=== PATIENT | female | born 1980 | race Caucasian/White ===

== ENCOUNTER 2017-11-17 18:14 | Inpatient (IN) | payer BC, OTHER ==
[~2017-11-17] VITALS: Ht 165.1 cm; Wt 80.8 kg
--- NOTE | ~2017-11-17 | EEG ---
[facility] [place] [address] ELECTROENCEPHALOGRAM Name: ANALISA NEWELL Room #: 212-P [facility] IN M.R.#: [id number] Admission: 11/17/17 Attend Phys: Fredrick Hurtado DO Discharge: 11/21/17 Date of : 80 Report #: [id number] THIS REPORT FOR: //name// CC: Fredrick Hurtado Physician staff Evelin Lerma DATE OF SERVICE: 11/18/2017 This patient is being evaluated for episodes of syncope. EEG was done by placing the electrode by standard 10-20 system of electrode placement. Background activity in this patient's EEG is about 11 Hz and 40 microvolts. It is a symmetrical activity. It is intermixed with fast beta range activity, which is probably the effect of medication. The patient became drowsy that is associated with bilateral slowing and vertex sharp waves. Photic stimulation was unremarkable. Throughout the record, no active epileptiform activity was noticed. IMPRESSION: This patient's EEG is within normal limits. No active epileptiform activity was noticed during this record. <ELECTRONICALLY SIGNED> By: Beltran Guillen MD 11/22/17 0819 1524 1539 Beltran Guillen MD /nt
--- NOTE | ~2017-11-17 | HC ---
[facility] [place] [address] CONSULTATION Name: ANALISA NEWELL Room #: 212-P [facility] IN .R.#: [id number] Admission: 11/17/17 Attend Phys: Fredrick Hurtado DO Discharge: 11/21/17 Date of : 80 Report #: [id number] THIS REPORT FOR: //name// CC: Fredrick Hurtado Physician staff Evelin Lerma DATE OF SERVICE: 11/18/2017 HISTORY OF PRESENT ILLNESS: This is a 37-year-old female patient who was evaluated by me for any neurological etiology for the patient's dizziness. The patient gives a history that she started having migraine headache when she was about 16. She used to get about 2-3 migraines headache per month. They were predominantly on the left side, but occasionally switched side. She did not know what brought it on and what makes them better. She was started on Topamax, but did not continue with Topamax because initially it was effective, but subsequently it became ineffective. She continued to have those episodes and now she is also having dizziness. She said most of the time, headache and dizziness come together. She has not had any recent MRI done. She has seen neurologist in the past, but not recently. Her family doctor has thought about sending this patient for Botox shot. REVIEW OF SYSTEMS: Pretty extensive in this patient. She has a history of depression and anxiety. She takes multiple psychotropic medications. She had multiple surgeries on the abdomen. She had cervical cancer and her whole uterus was removed. She was put on hormone she developed PE and subsequently she was put on anticoagulation. She does not know any relationship of her headache with anxiety or depression. I carried out the 14-point review of system and she had history of abdominal problem. She had some bowel problem. She has a history of diverticulitis and as mentioned above, she had a history of cervical cancer. She is also being evaluated by Cardiology for any cardiological etiology for the patient's symptoms. This was her relevant 14-point review of system. PAST MEDICAL HISTORY: Positive for migraine. FAMILY HISTORY: Negative for any early age stroke. SOCIAL HISTORY: She said she does not drink alcohol. PHYSICAL EXAMINATION: NEUROLOGIC: Indicates she is alert. She is responsive. She can follow simple commands. Her speech, concentration, fund of knowledge and memory is at her baseline. Cranial nerve examination 2-12 looks unremarkable. There is no papilledema. Her strength, sensation, reflexes and tone looks symmetrical. There is no cerebellar sign. There is no papilledema. [place] [address] CONSULTATION Name: ANALISA NEWELL Room #: 212-P [facility] IN M.R.#: [id number] Admission: 11/17/17 Attend Phys: Fredrick Hurtado, Discharge: 11/21/17 Date of : 80 Report #: [id number] well-developed individual who does not have any dysmorphic features of eyes, ears and face. Her vision and hearing looks adequate. EXTREMITIES: Her pulses are palpable. She has no edema, cyanosis or jaundice. CARDIAC: Unremarkable. RESPIRATORY: No respiratory difficulty or rhonchi was noticed on either side. VITAL SIGNS: Her blood pressure is 107/62, respiration is 14, pulse is 60, temperature is 97.3. Her blood pressure has run on the lower side and has gone as low as in the 80s. LABORATORY DATA: Indicates that her sodium was normal and TSH is normal. IMPRESSION: This patient does have a history suggestive of migraine. She also has pretty significant psychiatric problems that complicate the matters and it becomes difficult to tell how much symptoms are because of psychiatric issues and how much symptoms are because of migraine. There is probably overlap. Her syncope can be because of posterior fossa, but is equally more likely secondary to systemic problems including somewhat low blood pressure and any cardiac problem which can be localized. RECOMMENDATIONS: 1. I suggested doing an MRI of the brain and MRA. 2. We will get an EEG done. 3. We will check vitamin B12. 4. If that workup is unremarkable, I will suggest that she goes to [facility] for consideration for the Botox shot as well as further evaluation. She said her family members already go to [facility] and she is familiar with it. She will make that appointment. If she is feeling dizzy and passing out, I told her not to drive until she sees people and they release her for driving. Thank you very much for this referral. We will check this workup and follow up if any abnormality is detected there. <ELECTRONICALLY SIGNED> By: Beltran Guillen MD 11/22/17 0818 1358 11 Beltran Guillen MD /nt
--- NOTE | ~2017-11-17 | CATHLAB ---
[facility] [address] [place] [address] INVASIVE PROCEDURE REPORT Name: ANALISA NEWELL Oliver Room #: 212-P [facility]#: [id number] Admission: 11/17/17 Attend Phys: Fredrick Hurtado, Discharge: 11/21/17 Date of : 80 Date of Service: 11/22/17 1014 Report #: [id number] THIS REPORT FOR: //name// APPROVED REPORT Study performed: 11/21/2017 11:27:38 Patient Details Patient Status: In-Patient Room #: The patient is a 37 year-old female Event Personnel [address]ino D[address] Manager, Janet, Dawna VARGAS RN, Janett Horton RTR, Aneta Will David Monitor Procedures Performed Left Heart Cath w/or w/o Coronaries [id number] [facility], supervision of conscious sedation Indication Positive stress test, Chest pain Procedure Narrative The Right Groin^ was infiltrated with 1% Lidocaine subcutaneous anesthesia. A PINNACLE 4FR Sheath #[id number] sheath was inserted into the RFA^. Coronary angiography was performed using coronary diagnostic catheters. The right coronary system was accessed and visualized with a JR4 catheter. The left coronary system was accessed and visualized with a JL4 catheter. The left ventricle was accessed and visualized with a PIGTAIL catheter. Left ventricular/Aortic Valve gradient assessed via catheter pullback. Hemostasis was obtained with manual pressure following sheath removal without any complications. The patient tolerated the procedure well and there were no complications associated with the procedure. There was no hematoma. Intraoperative Conscious Sedation Sedation start time: 12.59 Case end Time: 1.14 Versed 2 mg Fluoro Time: 1.07 minutes Dose: DAP 1393. cGycm2 209 mGy Contrast Type and Amount: Omnipaque 60 ml [facility] [place] [address] INVASIVE PROCEDURE REPORT Name: ANALISA NEWELL Room #: 212-P [facility]#: [id number] Admission: 11/17/17 Attend Phys: Fredrick Hurtado, Discharge: 11/21/17 Date of : 80 Date of Service: 11/22/17 1014 Report #: [id number] Coronary Angiography The patient's coronary anatomy is right dominant. Diagnostic Cath Left Main Normal origin and caliber bifurcates left anterior descending left circumflex free of high-grade disease. Is somewhat long in its length. LAD Small moderate caliber type I vessel courses in the anterior interventricular sulcus giving rise to diagonal septal branches free of high-grade disease as it terminates well above the left ventricular apical region Diagonal 1 Small-caliber vessels free of high-grade disease Circumflex Her caliber vessel which has a proximal taper at a bend otherwise no significant lesions as it proceeds laterally as a lateral wall marginal branch. The terminal portions a small string-like vessel that terminates prior to reaching the posterior crux of the heart OM1 Small to moderate caliber vessel coursing on the dural aspect of the left ventricle free of high-grade disease Right Coronary Large-caliber vessel of normal origin the proceeds give rise to RV marginal branches. In the bases of the crux of the heart rate is rise to moderate to large caliber posterior descending artery which extends to the apex and terminates as a bifurcating vessel at the left ventricular apical region. The posterior circulation is a moderate to large caliber branches which extend into the inferolateral aspect of the left ventricle R PDA large-caliber vessel coursing towards the apex terminating as stated above free of high-grade disease Left Ventriculography Left Ventriculography was not performed. Hemodynamics The aortic pressure is 121/75 mmHg with a mean of 92 mmHg. The left ventricular pressure is 129/5 mmHg with a mean of mmHg. The left ventricular end diastolic pressure is 14 mmHg. Conclusion 1. Normal coronary arteries with a type I LAD and a large right coronary circulation 2. Normal hemodynamics [facility] [address] [place] [address] INVASIVE PROCEDURE REPORT Name: OSIRISANALISA Room #: 212-P [facility] IN M.R.#: [id number] Admission: 11/17/17 Attend Phys: Fredrick Hurtado, Discharge: 11/21/17 Date of : 80 Date of Service: 11/22/17 1014 Report #: [id number] Recommendations Cardiac Risk Reduction Program <ELECTRONICALLY SIGNED> By: Constantino Díaz MD 11/22/17 1014 1014 1014 Constantino Díaz MD /INF
--- NOTE | ~2017-11-17 | 2DMMODE ---
[facility] [address] [place] [address] 2 D/M-MODE ECHOCARDIOGRAM Name: ANALISA NEWELL Room #: 212-P [facility] IN ..#: [id number] Admission: 11/17/17 Attend Phys: Fredrick Hurtado, Discharge: Date of : 80 Date of Service: 11/18/17 1123 Report #: [id number] THIS REPORT FOR: //name// APPROVED REPORT Study performed: 11/18/2017 10:35:04 EXAM: Comprehensive 2D, Doppler, and color-flow Echocardiogram Patient Location: Echo lab Room #: [facility] Status: routine BSA: 1.88 HR: 50 bpm BP: 97/67 mmHg Other Information Study Quality: Adequate Indications Syncope Chest Pain 2D Dimensions RVDd: 26.47 mm LVEF(%): 57.53 (>50%) IVSd: 11.95 (7-11mm) LVOT Diam: 19.63 (18-24mm) LVDd: 41.68 mm PWd: 12.41 (7-11mm) Ascending Ao: 29.37 (22-36mm) LVDs: 29.21 (25-40mm) Aortic Root: 30.12 mm IVC: 12.00 mm Dahl's LVEF: 57.53 % Volumes Left Atrial Volume (Systole) Single Plane 4CH: 36.47 mL Single Plane 2CH: 65.92 mL LA ESV Index: 31.00 mL/m2 Aortic Valve AoV Peak Joel.: 0.97 m/s AO Peak Gr.: 3.77 mmHg LVOT Max P.52 mmHg LVOT Max V: 0.94 m/s KOLE Vmax: 2.92 cm2 Mitral Valve E/A Ratio: 1.3 MV Decel. Time: 210.93 ms [facility] [place] [place] [address] 2 D/M-MODE ECHOCARDIOGRAM Name: ANALISA NEWELL Room #: 212-P [facility] IN .R.#: [id number] Admission: 11/17/17 Attend Phys: Fredrick Hurtado, Discharge: Date of : 80 Date of Service: 11/18/17 1123 Report #: [id number] MV E Max Joel.: 0.75 m/s MV A Joel.: 0.59 m/s MV PHT: 61.17 ms IVRT: 100.35 ms Pulmonary Valve PV Peak Joel.: 0.63 m/s PV Peak Gr.: 1.59 mmHg Pulmonary Vein P Vein S: 0.42 m/s P Vein A: 0.24 m/s P Vein D: 0.39 m/s P Vein A Dur.: 124.6 msec P Vein S/D Ratio: 1.08 Tricuspid Valve TR Peak Joel.: 2.11 m/s RAP Estimate: 5.00 mmHg TR Peak Gr.: 17.84 mmHg PA Pressure: 23.00 mmHg Left Ventricle The left ventricle is normal size. Mild concentric left ventricular hypertrophy. The left ventricular systolic function is normal. The left ventricular ejection fraction is within the normal range. LVEF is 55%. The left ventricular diastolic function is normal. Right Ventricle The right ventricle is normal size. The right ventricular systolic function is normal. Atria The left atrium size is normal. The right atrium size is normal. Aortic Valve The aortic valve is normal in structure. No aortic regurgitation is present. There is no aortic valvular stenosis. Mitral Valve The mitral valve is normal in structure. Trace to mild mitral regurgitation. No evidence of mitral valve stenosis. Tricuspid Valve The tricuspid valve is normal in structure. Trace tricuspid regurgitation. Pulmonic Valve The pulmonary valve is normal in structure. Trace pulmonic [facility] [address] [place] [address] 2 D/M-MODE ECHOCARDIOGRAM Name: ANALISA NEWELL Room #: 212-P [facility] IN [facility]#: [id number] Admission: 11/17/17 Attend Phys: Fredrick Hurtado, Discharge: Date of : 80 Date of Service: 11/18/17 1123 Report #: [id number] regurgitation. Great Vessels The aortic root is normal in size. IVC is normal in size and collapses >50% with inspiration. Pericardium There is no pericardial effusion. <Conclusion> The left ventricle is normal size. LVEF is 55%. The aortic valve is normal in structure. The mitral valve is normal in structure. Trace to mild mitral regurgitation. The tricuspid valve is normal in structure. Trace tricuspid regurgitation. The pulmonary valve is normal in structure. Trace pulmonic regurgitation. There is no pericardial effusion. <ELECTRONICALLY SIGNED> By: Constantino Díaz MD 11/18/17 1123 1123 112 Constantino Díaz MD /INF
--- NOTE | ~2017-11-17 | EKG ---
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 : 1980 Requested By: Marta Mcfadden Order Number: [id number] MD: Jairo White Measurements Intervals [place] Rate: 60 P: 40 ND: 166 QRS: -10 QRSD: 89 T: 5 QT: 422 QTc: 422 Interpretive Statements Sinus rhythm Low voltage, precordial leads Abnormal R-wave progression, early transition No previous ECG available for comparison Electronically Signed On 11-18-2017 8:58:34 CDT by Jairo White [email or web address] <ELECTRONICALLY SIGNED> By: Jairo White MD, [facility] 11/18/17 0858 30 30 Jairo White MD, [facility] /EPI
--- NOTE | ~2017-11-17 | H ---
[facility] [place] [address] [place] [address] HISTORY AND PHYSICAL Name: ANALISA NEWELL Room #: 212-P ADM IN M.R.#: [id number] Admission: 11/17/17 Attend Phys: Fredrick Hurtado DO Discharge: Date of : 80 Report #: [id number] THIS REPORT FOR: //name// CC: Fredrick Hurtado Physician staff Evelin Lerma DATE OF SERVICE: 11/17/2017 ATTENDING PHYSICIAN: Dr. Denton PRIMARY CARE PHYSICIAN: Dr. Gaviria in [place]. CHIEF COMPLAINT: Syncope. HISTORY OF PRESENT ILLNESS: The patient is a 37-year-old female who initially presented to [facility] ER yesterday with complaints of epigastric pain, chest pain and a headache. She was evaluated in the ER and discharged to home. She was not given any IV narcotics before she left. In the ER, she was witnessed to have a syncopal episode. Apparently, her eyes rolled back and she went unresponsive briefly when she was in the parking lot at the hospital. She was brought back into the ER and reevaluated. She reported that she had had a few similar episodes in the past. She was recently on a Holter monitor for about 5 weeks. She states she was called by the company multiple times stating she had some irregularities, but she is not quite sure on the specifics of this. She was scheduled to have a followup visit with Dr. Chandler of Cardiology later next week. She now reports that she was having some episodes of heart racing recently as well as other episodes of chest pain. At [facility], she did receive a dose of Toradol, Ativan, Stadol and Protonix. Because of the syncope and possible heart arrhythmia, she was transferred to [facility] for further evaluation. She does have a history of PEs and has been on Eliquis since June of this year. She is still complaining of some chest pain for which she is specifically asking for Dilaudid as well as migraine headache. She has not had any associated nausea, vomiting or diaphoresis. She denies any history of coronary artery disease. She denies any underlying lung problems such as COPD. She denies any recent fevers, chills, cough or congestion, nausea, vomiting or diarrhea. She apparently was also evaluated in another ER in [place] on 11/14 with similar complaints and her workup was unremarkable as well. At the beginning of the assessment, the patient was sleeping and somewhat difficult to arouse. She kept dozing off and when she would arouse she would start talking and slur her speech as she fell back to sleep throughout the assessment. She did become more alert and stated she needed pain medication because she could not sleep because of her chest pain. PAST MEDICAL HISTORY: PE, migraine, GERD and anxiety. [facility] [address] [place] [address] HISTORY AND PHYSICAL Name: ANALISA NEWELL Room #: 212-P [facility] IN M.R.#: [id number] Admission: 11/17/17 Attend Phys: Fredrick Hurtado DO Discharge: Date of : 80 Report #: [id number] PAST SURGICAL HISTORY: Appendectomy, cholecystectomy, , hysterectomy and tonsillectomy. ALLERGIES: HYOSCYAMINE, MAG CITRATE AND SULFA. HOME MEDICATIONS: Eliquis 5 mg p.o. at bedtime, Prozac 20 mg daily, alprazolam 1 mg b.i.d. p.r.n., Zofran 4 mg q. 8 hours p.r.n. nausea and Protonix 20 mg at bedtime. SOCIAL HISTORY: The patient lives at home with her parents and her three children. She is an ex-smoker having only smoked when she was a teenager, but quit by the age of 21. She denies any history of alcohol use. 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 FAMILY HISTORY: Her father has a history of leukemia, but she states he has been in remission for the last year. Her mother is alive and healthy. REVIEW OF SYSTEMS: Twelve-point review of systems is reviewed with patient, otherwise negative unless stated in the HPI. PHYSICAL EXAMINATION: GENERAL: The patient is an alert female in no acute distress. VITAL SIGNS: Temperature is 36.5, heart rate 59, respirations 18, blood pressure 92/47 and oxygen 98% on room air. HEENT: PERRLA. Sclerae is nonicteric. Oral mucosa is pink and moist. NECK: Supple, no JVD noted. CARDIAC: Normal S1 and S2. No murmurs, rubs or gallops. RESPIRATORY: Breath sounds are clear bilaterally. No wheezing or rhonchi. Breathing is nonlabored. ABDOMEN: Soft, nontender and nondistended with positive bowel sounds. VASCULAR: No edema noted. Pedal pulses are 2+. NEUROLOGIC: The patient is alert and oriented x 3. Speech is clear. She is moving all extremities equally. No focal neuro deficits noted. PSYCHIATRIC: The patient does become tearful at times, otherwise she is cooperative. LABORATORY DATA AND DIAGNOSTICS: Blood work done at [facility] showed a WBC of 3.8, hemoglobin of 10.3 and platelets 191. Sodium 138, potassium 4.0, BUN 8, creatinine is 1.1 and glucose 87. Lipase 158. BNP is 320. LFTs are within normal limits. Troponins negative. D-dimer was normal. Urine drug screen is positive for benzodiazepine. UA is negative. INR is 1.0. CTA of the chest done at [facility] was negative for PE. ASSESSMENT AND PLAN: 1. Chest pain. Her initial cardiac workup was unremarkable. We did repeat a troponin after arrival, which was negative and EKG was unremarkable. We will [facility] [address] [address] HISTORY AND PHYSICAL Name: ANALISA NEWELL Oliver Room #: 212-P [facility] IN [facility]#: [id number] Admission: 11/17/17 Attend Phys: Fredrick Hurtado DO Discharge: Date of : 80 Report #: [id number] consult Cardiology as there is concern that she has been having some sort of arrhythmias that she feels are associated with episodes of chest pain. Continue to monitor on telemetry. 2. Syncope. CTA is negative for PE. Continue to monitor on telemetry. Again Cardiology will be consulted due to reported arrhythmias noted with her recent wearing of the Holter monitor. She is already anticoagulated with Eliquis. Check orthostatics daily. 3. Migraine headache. The patient was told she will not be getting any IV pain medication for her headaches and we will work with Fioricet and Percocet. 4. DVT prophylaxis, place sequential compression devices. We will continue to follow the patient closely throughout the hospitalization and make changes based on her clinical status. <ELECTRONICALLY SIGNED> By: SYED Pringle 11/18/17 0933 0843 Marta Mcfadden, SYED /nt
[2017-11-17 20:00] VITALS: BP 92/47
[2017-11-17] MEDS ORDERED: PROTONIX 20 MG20 MG PO (20:01)
[2017-11-17] MEDS ORDERED: PROZAC20 MG PO (20:01)
[2017-11-17] MEDS ORDERED: ELIQUIS5 MG PO (20:02)
[2017-11-17] MEDS ORDERED: XANAX1 MG PO (20:03)
[2017-11-17] MEDS ORDERED: ONDANSETRON HCL4 M2 PO (20:04)
[2017-11-17 23:54] VITALS: BP 92/47
[2017-11-18] VITALS (7 sets, daily range): BP systolic 81–107; BP diastolic 45–72
[2017-11-18 00:41] LABS: CHOLESTEROL 164 mg/dL (<200); HDL CHOLESTEROL 39 mg/dL (>40); LDL CHOLESTEROL 80 mg/dL (<100); TC:HDL 4.2 Ratio (Not establshd); TRIGLYCERIDE 229 mg/dL (<150); VLDL 46 mg/dL (<40)
[2017-11-18 00:43] LABS: SERUM ASSESSMENT Clear
[2017-11-19 05:01] VITALS: BP 119/84
[2017-11-19 07:34] VITALS: BP 93/60
[2017-11-19 15:32] VITALS: BP 119/78
[2017-11-19 17:14] LABS: CALCIUM 9.5 mg/dL (8.5-10.1); POTASSIUM 4.2 mmol/L (3.5-5.1)
[2017-11-19] MEDS ORDERED: ZANAFLEX4 MG PO (18:50)
[2017-11-19 18:52] VITALS: BP 119/78
[2017-11-19 19:14] VITALS: BP 96/50
[2017-11-20 04:13] VITALS: BP 119/71
[2017-11-20 07:19] VITALS: BP 106/65
[2017-11-20 11:17] VITALS: BP 93/69
[2017-11-20 15:29] VITALS: BP 109/69
[2017-11-20 20:21] VITALS: BP 110/73
[2017-11-21 04:54] VITALS: BP 117/77
[2017-11-21 07:15] VITALS: BP 122/75
[2017-11-21 11:07] VITALS: BP 106/70
[2017-11-21 14:08] LABS: ANTI-DNA SCREEN 1 IU/mL (0-9); ANTI-RNP <0.2 AI (0.0-0.9)
[2017-11-21 16:54] VITALS: BP 106/70
== END 2017-11-21 17:25 | disposition home or self-care (01) | DRG 287 ==
LOC: 2N 18:14 → ENTRNSPT 11-21 17:18 → 2N 11-21 17:25
PROVIDERS: Hospitalist; Internal Medicine Cardiovascular Disease; Nurse Practitioner Acute Care
PROC: B2111ZZ Fluoroscopy of Multiple Coronary Arteries using Low Osmolar Contrast (ICD-10-PCS; principal; 2017-11-21)
PROC: 4A023N7 Measurement of Cardiac Sampling and Pressure, Left Heart, Percutaneous Approach (ICD-10-PCS; principal; 2017-11-21)
DX: R07.9 Chest pain, unspecified (principal); G45.9 Transient cerebral ischemic attack, unspecified; G43.909 Migraine, unspecified, not intractable, without status migrainosus; K21.9 Gastro-esophageal reflux disease without esophagitis; F41.9 Anxiety disorder, unspecified; E78.5 Hyperlipidemia, unspecified; Z86.711 Personal history of pulmonary embolism; Z90.49 Acquired absence of other specified parts of digestive tract; Z90.710 Acquired absence of both cervix and uterus; Z88.2 Allergy status to sulfonamides; Z88.8 Allergy status to other drugs, medicaments and biological substances; Z82.49 Family history of ischemic heart disease and other diseases of the circulatory system
CPT/HCPCS: 10081